=== PATIENT | male | born 1980 | race Caucasian/White ===

== ENCOUNTER 2024-01-23 23:37 | Emergency (ER) | payer SELFPAY ==
[2024-01-24] MEDS: Ibuprofen 800 MG Tab PO ONE (00:16)
[2024-01-24] MEDS: Levofloxacin 750 MG Tab PO SCH (00:17)
[2024-01-24] MEDS: Acetaminophen/oxyCODONE 325-5 MG Tab PO ONE (00:17)
== END 2024-01-24 00:20 | disposition home or self-care (01) ==
LOC: JD.ED 23:37
DX: N45.3 Epididymo-orchitis (principal)
CPT/HCPCS: 99283; A9270